=== PATIENT | female | born 1965 | race Caucasian/White ===

== ENCOUNTER → 2019-11-26 12:39 | Outpatient (CLI) | payer OTHER, SELFPAY ==
--- NOTE | 2019-11-26 12:47 | MM_ITS ---
PROCEDURE: MM DIG SCREENING MAMM BI W/CAD Digital Breast Tomosynthesis Included CLINICAL INDICATION: SCREENING There is a history of breast cancer patient's maternal grandmother. COMPARISON: MG DIGMAMMS MAMMOGRAM SCREEN-CLIENT SERVER PROGRAMMER N/C from 02/13/2007 MG DIGMAMMS MAMMOGRAM SCREEN-CLIENT SERVER PROGRAMMER N/C from 05/13/2008 MG DMSB DIG MAMM-SCREEN MARCIA from 09/25/2012 TECHNIQUE: Standard CC and MLO images and 3D Tomosynthesis was obtained. R2 CAD reviewed. FINDINGS: Mild to moderate fibroglandular densities are seen in the central portions of both breasts and the findings are bilateral and symmetrical. There is no new or suspicious lesion in either breast and no suspicious microcalcifications. IMPRESSION: Mild to moderate breast density with no suspicious lesions seen BI-RAD Category: 1 Negative FOLLOW-UP: 1YR 1 Year Follow-up (A letter has been sent to the patient regarding results of the study.) Dictated Dr. Thai Trivedi MD 11/27/2019 13:43 Dr. Thai Walker MD in [place] 11/27/2019 13:43
== END ==
PROVIDERS: PCP Internal Medicine Adolescent Medicine; Visit Provider Nurse Practitioner Family
DX: Z12.31 Encounter for screening mammogram for malignant neoplasm of breast (principal)
CPT/HCPCS: 77063; 77067

== ENCOUNTER → 2019-12-14 15:16 | Outpatient (CLI) | payer OTHER, SELFPAY ==
--- NOTE | 2019-12-14 15:20 | XR_ITS ---
PROCEDURE: XR HIP LT 2-3V W/PELVIS CLINICAL INDICATION: L HIP PAIN COMPARISON: No exams were available for comparison FINDINGS: No fracture or dislocation is evident. No significant degenerative change. No lytic or blastic change. Unremarkable soft tissues. IMPRESSION: No acute findings. Dictated by: Brian Royal MD 12/14/2019 16:06 Brian Royal MD in [place] 12/14/2019 16:06
== END ==
PROVIDERS: PCP Nurse Practitioner Family; Visit Provider Nurse Practitioner Family
DX: M25.552 Pain in left hip (principal)
CPT/HCPCS: 73502

== ENCOUNTER → 2020-01-21 11:37 | Outpatient (CLI) | payer OTHER, SELFPAY ==
[2020-01-21 11:59] LABS: Basophils # 0.1 K/mm3 (0-0.2); Basophils % 0.9 % (0.1-2.0); Eosinophils # 0.2 K/mm3 (0.0-0.4); Eosinophils % 2.7 % (0.1-12.0); Hematocrit 35.4 % (37.0-47.0); Hemoglobin 11.1 g/dL (12.2-16.2); Lymphocytes # 1.8 K/mm3 (0.7-4.5); Mean Corpuscular HGB Conc 31.3 g/dL (31.8-35.4); Mean Corpuscular Hemoglobin 23.6 pg (27.0-31.2); Mean Corpuscular Volume 75.5 fl (81-99); Mean Platelet Volume 7.1 fl (7.4-10.4); Monocytes # 0.3 K/mm3 (0.1-1.0); Monocytes % 4.9 % (1.7-9.3); Neutrophils # 4.1 K/mm3 (1.8-7.8); Neutrophils % 63.5 % (37.0-80.0); Platelet Count 429 K/mm3 (142-424); Red Blood Count 4.68 M/mm3 (4.20-5.40); Red Cell Distribution Width 17.4 % (11.5-17.5); White Blood Count 6.4 K/mm3 (4.8-10.8)
[2020-01-21 13:02] LABS: Hemoglobin A1C 5.5 % (4.0-6.0)
[2020-01-21 13:12] LABS: Alanine Aminotransferase 21 U/L (12-78); Albumin Level 4.3 g/dl (3.5-5.0); Albumin/Globulin Ratio 1.2 (1.1-1.8); Alkaline Phosphatase 169 U/L (38-126); Anion Gap 12.6 mEq/L (5-15); Aspartate Amino Transferase 32 U/L (14-36); Bilirubin,Total 0.3 mg/dl (0.2-1.3); Blood Urea Nitrogen 5 mg/dl (7-17); Calcium 9.8 mg/dl (8.4-10.2); Carbon Dioxide 30 mmol/L (22.0-30.0); Chloride 104 mmol/L (98-107); Chol/HDL Ratio 9.2 (1-3.5); Cholesterol 275 mg/dl (140-200); Estimated Glomerular Filt Rate 130 ml/min (>60); GFR (African American) 157 ML/MIN (>60); Globulin 3.5 g/dL (1.3-3.2); Glucose 90 mg/dl (74-100); HDL Cholesterol 30 mg/dl (40-60); Potassium 4.6 mmoL/L (3.5-5.1); Sodium 142 mmol/L (136-145); Total Protein,Serum 7.8 g/dl (6.3-8.2)
[2020-01-21 13:31] LABS: 25-OH Vitamin D, Total 36.8 ng/mL (30-100)
[2020-01-21 14:04] LABS: Vitamin B12 394 pg/mL (239-931)
[2020-01-21 20:47] LABS: Direct LDL Cholesterol 42.29 mg/dL (100-129)
[2020-01-21 21:08] LABS: Triglycerides 1479 mg/dl (30-150)
[2020-01-21 21:53] LABS: Thyroid Stimulating Hormone 2.13 uIU/mL (0.465-4.68)
[2020-01-22 08:55] LABS: Iron 27 ug/dL (37-170)
[2020-01-22 09:05] LABS: Total Iron Binding Capacity 470 ug/dL (265-497)
[2020-01-22 09:31] LABS: Ferritin 11.7 ng/ml (11.1-264)
== END ==
PROVIDERS: Internal Medicine Adolescent Medicine; Visit Provider Nurse Practitioner Family
DX: E78.1 Pure hyperglyceridemia (principal); D64.9 Anemia, unspecified; R20.2 Paresthesia of skin
CPT/HCPCS: 36415; 80053; 80061; 82306; 82607; 82728; 83036; 83540; 83550; 84443; 85025

== ENCOUNTER → 2021-01-20 10:00 | Outpatient (CLI) | payer OTHER, SELFPAY ==
--- NOTE | 2021-01-20 10:04 | CT_ITS ---
PROCEDURE: CT LUNG SCREENING CLINICAL INDICATION: H/O NICOTINE DEPENDENCE COMPARISON: No exams were available for comparison TECHNIQUE: The exam was performed on a GE Light Speed [address] scanner using 2.90 mGy CTDI. A low dose helical CT CHEST was performed on a multi-detector scanner. All CT scans at the facility use one or more dose reduction, viz: automated exposure control, ma/kV adjustment per patient size (including targeted exams where dose is matched to indication, i.e. head), or iterative reconstruction technique. The LDCT was performed in a facility that meets the criteria for the screening program. Data regarding this exam was submitted to ACR which is an approved registry. The order for this exam indicates that it came as a result of a lung cancer screening counseling shard decision-making visit that included all the elements required of such a visit including smoking cessation. The radiologist interpreting this exam meets the CMS criteria for the LDCT lung cancer screening program. The exam is reported using the Lung-RADS classification scale and reported to the ACR registry. NOTE: This study was performed for the specific purposes of lung cancer screening and is not an alternative to diagnostic chest CT. RADIATION DOSE: CTDI vol(CT dose Index-volume) = 2.90mG DLP (Dose Length Product) = 108.64 mGcm FINDINGS: COPD with centrilobular and paraseptal emphysematous changes no suspicious nodules identified. Faint hazy ground-glass attenuation in the upper lobes may be related to small airway disease. There is scattered areas of scarring most prominent in the apices with subpleural blebs OTHER FINDINGS: . Coronary artery calcification. Old granulomatous disease IMPRESSION: Lung-RADS Category 2 Benign Appearance or Behavior Follow-up: Continue annual screening with LDCT in 12 months Dictated by: Brian Royal MD 02/05/2021 10:17 Brian Royal MD in [place] 02/05/2021 10:17
--- NOTE | 2021-01-20 10:05 | MM_ITS ---
PROCEDURE: MM DIG SCREENING MAMM BI W/CAD Digital Breast Tomosynthesis Included CLINICAL INDICATION: SCREENING There is history of breast cancer in the patient's maternal grandmother COMPARISON: MG DMSB DIG MAMM-SCREEN MARCIA from 09/25/2012 MG MM DIG SCREENING MAMM BI W/CAD from 11/26/2019 TECHNIQUE: Standard CC and MLO images and 3D Tomosynthesis was obtained. R2 CAD reviewed. FINDINGS: Mild to moderate fibroglandular densities are seen in the central portions of both breasts and the findings are bilateral and symmetrical. A single CAD marking on each breast was reviewed and they appear to benign. There is no suspicious lesion in either breast and no suspicious microcalcifications. IMPRESSION: Mild to moderate breast density with no suspicious lesions seen BI-RAD Category: 1 Negative FOLLOW-UP: 1YR 1 Year Follow-up (A letter has been sent to the patient regarding results of the study.) Dictated by: Dr. Thai Walker MD 01/26/2021 15:16 Dr. Thai Walker MD in [place] 01/26/2021 15:16
== END ==
PROVIDERS: PCP Nurse Practitioner Family; Visit Provider Nurse Practitioner Family
DX: Z87.891 Personal history of nicotine dependence (principal); Z12.2 Encounter for screening for malignant neoplasm of respiratory organs; Z12.31 Encounter for screening mammogram for malignant neoplasm of breast
CPT/HCPCS: 71271; 77063; 77067

== ENCOUNTER → 2022-07-26 14:20 | Outpatient (CLI) | payer OTHER, SELFPAY ==
--- NOTE | 2022-07-26 14:25 | XR_ITS ---
FINAL REPORT CLINICAL HISTORY: FOOT PAIN FINDINGS: LEFT FOOT Three views of the left foot demonstrate no acute fracture or dislocation. The joint spaces are preserved. The soft tissues are unremarkable. IMPRESSION: No acute bony abnormality. Reviewed, Interpreted and Dictated by Collin Youngblood MD Transcribed by Ann Marie Stark Authenticated and [facility][1]
== END ==
PROVIDERS: PCP Nurse Practitioner Family; Visit Provider Nurse Practitioner Family
DX: M79.672 Pain in left foot (principal)
CPT/HCPCS: 73630

== ENCOUNTER → 2022-10-15 09:55 | Outpatient (CLI) | payer OTHER, SELFPAY ==
--- NOTE | 2022-10-15 10:00 | XR_ITS ---
FINAL REPORT CLINICAL HISTORY: RIGHT HAND PAIN COMPARISON: None FINDINGS: RIGHT HAND: 3 views of the right hand were obtained. There is no acute fracture or dislocation. Visualized joint spaces are normally aligned. Mild degenerative change at the radial aspect of the wrist. Soft tissues are unremarkable. IMPRESSION: No acute bony abnormality. Reviewed, Interpreted and Dictated by Jimbo Childers III, MD Transcribed by Guillermina Win Authenticated and [facility]
--- NOTE | 2022-10-15 10:00 | XR_ITS ---
FINAL REPORT CLINICAL HISTORY: RIGHT SHOULDER PAIN COMPARISON: None FINDINGS: RIGHT SHOULDER: 3 views of the right shoulder were obtained. There is no acute fracture or dislocation. Mild acromioclavicular degenerative change. There is no soft tissue abnormality. IMPRESSION: No acute bony abnormality. Reviewed, Interpreted and Dictated by Jimbo Childers III, MD Transcribed by Guillermina Win Authenticated and [facility]
== END ==
PROVIDERS: PCP Nurse Practitioner Family; Visit Provider Nurse Practitioner Family
DX: M25.511 Pain in right shoulder (principal); M79.641 Pain in right hand
CPT/HCPCS: 73030; 73130

== ENCOUNTER → 2023-03-27 11:32 | Outpatient (CLI) | payer OTHER, SELFPAY ==
[2023-03-27 12:03] LABS: Basophils # 0.1 K/mm3 (0-0.2); Basophils % 1.1 % (0.1-2.0); Eosinophils # 0.2 K/mm3 (0.0-0.4); Eosinophils % 2.4 % (0.1-12.0); Hematocrit 36.8 % (37.0-47.0); Hemoglobin 11.8 g/dL (12.2-16.2); Lymphocytes # 2.5 K/mm3 (0.7-4.5); Lymphocytes % 38.1 % (10-50); Mean Corpuscular HGB Conc 32.1 g/dL (31.8-35.4); Mean Corpuscular Hemoglobin 26.3 pg (27.0-31.2); Mean Corpuscular Volume 81.9 fl (81-99); Mean Platelet Volume 7.6 fl (7.4-10.4); Monocytes # 0.3 K/mm3 (0.1-1.0); Monocytes % 4.4 % (1.7-9.3); Neutrophils # 3.5 K/mm3 (1.8-7.8); Neutrophils % 53.9 % (37.0-80.0); Platelet Count 404 K/mm3 (142-424); Red Cell Distribution Width 16.9 % (11.5-17.5); White Blood Count 6.5 K/mm3 (4.8-10.8)
== END ==
PROVIDERS: PCP Nurse Practitioner Family; Visit Provider Internal Medicine Medical Oncology
DX: D50.9 Iron deficiency anemia, unspecified (principal)
CPT/HCPCS: 36415; 85025

== ENCOUNTER 2023-04-05 13:02 | Outpatient (CLI) | payer OTHER, SELFPAY ==
[2023-04-05 13:20] VITALS: BP 132/67; PULSE 72; RESP 18; TEMP 36.8; O2SAT 99
[2023-04-05 13:50] VITALS: BP 134/63; PULSE 71; RESP 18; O2SAT 98
== END 2023-04-05 14:00 | disposition home or self-care (01) ==
LOC: INF 13:03
PROVIDERS: PCP Internal Medicine Adolescent Medicine; Visit Provider Internal Medicine Medical Oncology
DX: D50.9 Iron deficiency anemia, unspecified (principal)
CPT/HCPCS: 96365; J1756

== ENCOUNTER 2023-04-12 12:41 | Outpatient (CLI) | payer OTHER, SELFPAY ==
[2023-04-12 13:15] VITALS: BP 127/64; PULSE 71; RESP 18; TEMP 36.8; O2SAT 98
[2023-04-12] MEDS: SODIUM CHLORIDE 0.9% 50ML BAG 50 ML IV (13:15)
[2023-04-12] MEDS: SODIUM CHLORIDE 0.9% 10ML FLUSH SYRINGE 10 ML IV (13:15)
[2023-04-12] MEDS: IRON SUCROSE COMPLEX 200 MG in 0.9 % SODIUM CHLORIDE 100 ML 220 MG IV (13:15)
[2023-04-12 13:45] VITALS: BP 130/65; PULSE 73; RESP 18; TEMP 36.7; O2SAT 99
== END 2023-04-12 13:50 | disposition home or self-care (01) ==
LOC: INF 12:42
PROVIDERS: PCP Internal Medicine Adolescent Medicine; Visit Provider Internal Medicine Medical Oncology
DX: D50.9 Iron deficiency anemia, unspecified (principal)
CPT/HCPCS: 96365; J1756

== ENCOUNTER 2023-04-19 13:00 | Outpatient (CLI) | payer OTHER, SELFPAY ==
[2023-04-19] MEDS: SODIUM CHLORIDE 0.9% 50ML BAG 50 ML IV (13:20)
[2023-04-19 13:25] VITALS: BP 135/40; PULSE 72; RESP 16; O2SAT 99
[2023-04-19] MEDS: IRON SUCROSE COMPLEX 200 MG in 0.9 % SODIUM CHLORIDE 100 ML 220 MG IV (13:25)
[2023-04-19 13:55] VITALS: BP 128/65; PULSE 64; RESP 16
== END 2023-04-19 14:05 | disposition home or self-care (01) ==
LOC: INF 13:01
PROVIDERS: PCP Internal Medicine Adolescent Medicine; Visit Provider Internal Medicine Medical Oncology
DX: D50.9 Iron deficiency anemia, unspecified (principal); T45.4X5A Adverse effect of iron and its compounds, initial encounter
CPT/HCPCS: 96365; J1756

== ENCOUNTER 2024-05-18 15:27 | Outpatient (CLI) | payer OTHER, SELFPAY ==
--- NOTE | 2024-05-18 15:33 | XR_ITS ---
FINAL REPORT CLINICAL HISTORY: PAIN,JOINT, KNEE, RIGHT ACUTE TRAUMATIC PAIN COMPARISON: None FINDINGS: 2 views of the right tibia/fibula were obtained. There is no acute fracture or dislocation. The joint spaces are intact. There is no soft tissue abnormality. IMPRESSION: No acute abnormality. Reviewed, Interpreted and Dictated by Collin Youngblood MD Transcribed by Guillermina Win Authenticated and [facility]
--- NOTE | 2024-05-18 15:33 | XR_ITS ---
FINAL REPORT CLINICAL HISTORY: Pain after trauma COMPARISON: None FINDINGS: RATE KNEE 3 views of the right knee were obtained. There is no acute fracture or dislocation. Visualized joint spaces are normally aligned. Soft tissues are unremarkable. IMPRESSION: No acute bony abnormality. Reviewed, Interpreted and Dictated by Collin Youngblood MD Transcribed by Guillermina Win Authenticated and [facility]
== END 2024-05-18 23:59 | disposition home or self-care (01) ==
LOC: RAD 15:29
PROVIDERS: PCP Internal Medicine Adolescent Medicine; Visit Provider Nurse Practitioner Family
DX: M25.561 Pain in right knee (principal); G89.11 Acute pain due to trauma
CPT/HCPCS: 73562; 73590

== ENCOUNTER 2024-08-25 12:09 | Outpatient (CLI) | payer OTHER, SELFPAY ==
[2024-08-25 12:27] LABS: Basophils # 0.1 K/mm3 (0-0.2); Basophils % 0.8 % (0.1-2.0); Eosinophils # 0.1 Kmm3 (0.0-0.4); Eosinophils % 1.7 % (0.1-12.0); Hematocrit 44.2 % (37.0-47.0); Hemoglobin 14.1 g/dL (12.2-16.2); Immature Granulocytes # 0.02 10^3uL; Immature Granulocytes % 0.3 %; Lymphocytes # 1.7 K/mm3 (0.7-4.5); Lymphocytes % 23.8 % (10-50); Mean Corpuscular HGB Conc 31.9 g/dL (31.8-35.4); Mean Corpuscular Hemoglobin 29.3 pg (27.0-31.2); Mean Corpuscular Volume 91.7 fl (81-99); Mean Platelet Volume 9.2 fl (7.4-10.4); Monocytes # 0.4 K/mm3 (0.1-1.0); Monocytes % 5.4 % (1.7-9.3); Nucleated Red Blood Cells # 0 10^3/uL; Nucleated Red Blood Cells % 0 %; Platelet Count 337 K/mm3 (142-424); Red Blood Count 4.82 M/mm3 (4.20-5.40); Red Cell Distribution Width 13.7 % (11.5-17.5); Red Cell Distribution Width-SD 46.6 fL; White Blood Count 7.3 K/mm3 (4.8-10.8)
[2024-08-25 13:07] LABS: Sodium 140 mmol/L (136-145)
[2024-08-25 13:08] LABS: Alanine Aminotransferase 21 U/L (12-78); Albumin Level 4.5 g/dl (3.5-5.0); Albumin/Globulin Ratio 1.7 (1.1-1.8); Alkaline Phosphatase 108 U/L (38-126); Anion Gap 6.2 mEq/L (5-15); Aspartate Amino Transferase 42 U/L (14-36); Bilirubin,Total 0.5 mg/dl (0.2-1.3); Blood Urea Nitrogen 11 mg/dl (7-17); Calcium 9.5 mg/dl (8.4-10.2); Carbon Dioxide 30 mmol/L (22.0-30.0); Chloride 108 mmol/L (98-107); Estimated Glomerular Filt Rate 103 ml/min (>60); GFR (African American) 125 ML/MIN (>60); Globulin 2.7 g/dL (1.3-3.2); Glucose 95 mg/dl (74-100); Potassium 4.2 mmoL/L (3.5-5.1); Total Protein,Serum 7.2 g/dl (6.3-8.2)
== END 2024-08-25 23:59 | disposition home or self-care (01) ==
LOC: LAB 12:10
PROVIDERS: PCP Internal Medicine Adolescent Medicine; Visit Provider Obstetrics & Gynecology
DX: R09.89 Other specified symptoms and signs involving the circulatory and respiratory systems (principal)
CPT/HCPCS: 36415; 80053; 85025

== ENCOUNTER 2024-10-08 09:50 | Outpatient (CLI) | payer OTHER, SELFPAY ==
--- NOTE | 2024-10-08 09:54 | CT_ITS ---
FINAL REPORT TECHNIQUE: Thin section axial images were obtained from the lung apices to the upper abdomen by computed tomography. Reformatted images were obtained and reviewed. This study was performed with techniques to keep radiation doses al low as reasonably achievable (ALARA). Individualized dose reduction techniques using automated exposure control or adjustment of mA and/or kV according to the patient's size were employed. CLINICAL HISTORY: SCREENING CURRENT SMOKER 1PPD X36 YEARS COMPARISON: None FINDINGS: CHEST CT LOW DOSE 60-year-old female Allie, [id number] history. CTDI vol (mGy): 2.90 DLP (mGy-cm): 102.12 There is no axillary adenopathy. There is no mediastinal or hilar mass or adenopathy. The heart is normal in size. There is no pericardial or pleural effusion. Changes of centrilobular emphysema are present. There is biapical pleural and parenchymal scarring noted. Lung window images demonstrate no suspicious infiltrate or nodule. Limited images of the upper abdomen are unremarkable. IMPRESSION: Lung-RADS category 1. Recommend 12 month follow up low dose chest CT. Reviewed, Interpreted and Dictated by Collin Youngblood MD Transcribed by Candi Bailon Authenticated and . [facility]
--- NOTE | 2024-10-08 09:55 | MM_ITS ---
PROCEDURE INFORMATION: Exam: MG Bilateral Screening 3D Mammography Exam date and time: 10/08/2024 10:20 AM Age: 59 years old Clinical indication: Screening examination TECHNIQUE: Imaging protocol: Bilateral Screening tomosynthesis and 2D mammography including computer-aided detection (CAD) when performed. COMPARISON: 1. MG MM DIG SCREENING MAMM BI W/CAD 01/20/2021 10:05 AM 2. MG MM DIG SCREENING MAMM BI W/CAD 11/26/2019 1:20 PM FINDINGS: MAMMOGRAPHY: Breast composition: There are scattered areas of fibroglandular density. Mass: No suspicious masses. Architectural distortion: None. Calcifications: No suspicious calcifications. Asymmetric density: None. Skin thickening: None. Axillary adenopathy: None. IMPRESSION: No mammographic evidence of malignancy. Annual screening is recommended unless otherwise clinically indicated. ASSESSMENT: BI-RADS Category 1: Negative.
== END 2024-10-08 23:59 | disposition home or self-care (01) ==
PROVIDERS: PCP Internal Medicine Adolescent Medicine; Visit Provider Nurse Practitioner Family
DX: Z12.31 Encounter for screening mammogram for malignant neoplasm of breast (principal); J43.2 Centrilobular emphysema; J98.4 Other disorders of lung; R92.323 Mammographic fibroglandular density, bilateral breasts; Z87.891 Personal history of nicotine dependence
CPT/HCPCS: 71271; 77063; 77067

== ENCOUNTER 2024-12-23 13:27 | Outpatient (CLI) | payer OTHER, SELFPAY ==
[2024-12-23 14:30] LABS: Albumin Level 4.2 g/dl (3.5-5.0); Chloride 109 mmol/L (98-107); Potassium 3.9 mmoL/L (3.5-5.1); Sodium 141 mmol/L (136-145)
[2024-12-23 14:32] LABS: Blood Urea Nitrogen 5 mg/dl (7-17); Creatinine,Serum 0.70 mg/dl (0.52-1.04)
[2024-12-23 14:33] LABS: Alanine Aminotransferase 29 U/L (12-78); Albumin/Globulin Ratio 1.5 (1.1-1.8); Alkaline Phosphatase 122 U/L (38-126); Anion Gap 9.9 mEq/L (5-15); Aspartate Amino Transferase 51 U/L (14-36); Bilirubin,Total 0.3 mg/dl (0.2-1.3); Calcium 9.2 mg/dl (8.4-10.2); Carbon Dioxide 26 mmol/L (22.0-30.0); Estimated Glomerular Filt Rate 86 ml/min (>60); GFR (African American) 104 ML/MIN (>60); Globulin 2.8 g/dL (1.3-3.2); Glucose 118 mg/dl (74-100); Total Protein,Serum 7.0 g/dl (6.3-8.2)
== END 2024-12-23 23:59 | disposition home or self-care (01) ==
LOC: LAB 13:27
PROVIDERS: Obstetrics & Gynecology; PCP Nurse Practitioner Family; Visit Provider Nurse Practitioner Family
DX: Z79.899 Other long term (current) drug therapy (principal)
CPT/HCPCS: 36415; 80053